=== PATIENT | male | born 1985 | race Caucasian/White ===

== ENCOUNTER 2021-03-14 16:59 | Emergency (ER) | payer OTHER, SELFPAY ==
[2021-03-14 17:04] VITALS: BP 142/00; PULSE 88; O2SAT 97
[2021-03-14 17:06] VITALS: BP 139/84; PULSE 87; RESP 18; TEMP 36.8; O2SAT 97; BMI 31.6
--- NOTE | 2021-03-14 17:14 | ED_ITS ---
HPI - General Adult General Chief complaint: Headache Stated complaint: headache Time Seen by Provider: 03/14/21 17:13 Source: patient Mode of arrival: EMS Limitations: no limitations History of Present Illness HPI narrative: 35-year-old male who presents emergency department for evaluation of headache. Patient states that around 3:00 a.m. he woke up and had a pressure-like headache to left side of his head. He states that the headache is a constant pressure/throbbing like pain which waxes and wanes in intensity. The pain is 8/10 at its worst. He states that he has a history of cluster headaches but he has not had cluster headaches and many years. He states this headache feels different than his cluster headache. He did have photophobia and nausea associated with the headache. He denied change in his vision, lightheadedness, dizziness, numbness, weakness. Patient took some Tylenol and ibuprofen with some relief his headache. Patient states that he is under stress, he states that he has a lump on his back. He saw surgeon yesterday he wants to get an ultrasound of the lump and possibly wants to remove the lump. The patient denied fever, chills, rhinorrhea, cough, chest pain or shortness of breath. Patient states that he did have a COVID-19 infection in July of 2020. States that he did receive the 2 shot Moderna COVID-19 vaccine prior to his infection. Related Data Allergies Allergy/AdvReac Type Severity Reaction Status Date / Time No Known Allergies Allergy Unverified 02/07/20 17:15 [No Known Allergies*] Review of Systems Review of Systems: Yes all other systems are reviewed and are negative [facility] Past Medical History [facility] Narrative: Past medical history: Hypoglycemia, hepatitis-C, COVID-19 infection of July of 2020. Past surgical history: Left ankle fracture requiring internal fixation. Social history: The patient smokes 5 cigarettes per day times 19 years. He states that he stop smoking 3 weeks prior. The patient does not drink alcohol. 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 He states that he uses heroin and cocaine but he has not used in 6 1/2 months. He is in a methadone program. 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 Head: Yes normal to inspection, Yes normocephalic and Yes atraumatic Ears: external ears normal General nose exam: Normal external nose present Face and sinus: Yes normal facial exam Mouth: Normal oral and palatal mucosa present Throat: Yes posterior oropharynx normal Eyes: General: appearance normal, both eyes and all related structures Pupils: Equal, round and reactive pupils present Neck: Neck: Yes normal visual inspection, Yes no lymphadenopathy, Yes trachea midline and Yes supple Chest: Chest palpation & inspection: normal inspection of the chest and normal palpation of entire chest wall Resp: Effort & Inspection: normal respiratory effort and able to speak in complete sentences Auscultation: clear to auscultation bilaterally Cardio: Rate: regular rate Rhythm: regular rhythm Heart sounds: S1 normal heart sound present, S2 normal heart sound present and no murmurs GI: Inspection: Yes normal to inspection Palpation (GI): Soft to palpation, nontender and no guarding Auscultation: normal bowel sounds : General: Yes no CVA tenderness Back/Spine/Pelvis: Back: no CVA tenderness Skin: General skin exam: no rashes or lesions noted Neuro: General: oriented to person and oriented to place Cranial nerves: Yes CN's II-XII intact bilaterally and Yes Equal, round and reactive pupils present Cognition (Neuro): normal cognition Motor exam (neuro): 5/5 motor strength present throughout Extrem: General: Yes normal to inspection Psych: Appearance: grossly normal Speech and movement: Normal speech and movement present Affect: normal affect Attitude: cooperative Thought process: Normal thought process present Thought content: Normal thought content present Course Course Course Narrative: 35-year-old male who presents emergency department for evaluation of left-sided headache which started at 3:00 a.m.. The headache a constant throbbing/pressure sensation which waxes and wanes in intensity and is 8/10 at its worst. Patient does have a history of cluster headaches with not had 1 in many years. The patient's vital signs were normal. Patient's presentation is consistent with a migraine syndrome. Patient will be treated with regular and 10 mg IV, Benadryl 50 mg IV, Toradol 30 mg IV and normal saline x1 L. 1831: The patient did feel better after the above treatment however he did developed akathisai and required Ativan 2 mg IV. The patient is feeling better and was discharged home. He is advised to take Excedrin migraine 2 tablets Benadryl 50 mg orally every 6 hours as needed for migraine headaches. He was discharged home with verbal and printed instructions. Medical Decision Making Lab Data Labs: Lab Results 03/14/21 Range/Units 18:19 POC Glucose 94 (60-115) mg/dL Discharge Plan Discharge Clinical Impression: Headache, migraine, Adverse drug reaction Patient Disposition: Home, Self-Care Instructions: Migraine Headache (ED) Additional Instructions: You had an adverse reaction to Reglan (metoclopramide) called akathisia- the feeling that you are anxious and need to run away. Do not take this medication again. For your headaches take the following medications together every 6 hours, these medications make you sleepy, do not drive or work while taking these medications: Excedrin migraine, 2 pills Benadryl 25 mg, 2 pills After you take these medications lie down in a dark quiet room and fall sleep, this should help the headache go away. Follow-up with your doctor in 2 days. Please return to the emergency department if your symptoms get worse or if you develop any symptoms that are concerning to you.
[2021-03-14] MEDS: 0.9 % Sodium Chloride 1,000 ML 999 ML IV (17:27)
[2021-03-14] MEDS: diphenhydrAMINE HCL 50 MG/ML VIAL IVPUSH (17:29)
[2021-03-14] MEDS: Ketorolac Tromethamine 15 MG/ML VIAL 30 MG IVPUSH (17:29)
--- NOTE | 2021-03-14 17:32 | PC.NURSE ---
Pt medicated for ZELAYA. Lights dimmed. Pt resting quietly at this time.
[2021-03-14] MEDS: LORazepam 2 MG/ML VIAL IVPUSH (18:15)
--- NOTE | 2021-03-14 18:20 | PC.NURSE ---
Pt feeling very anxious after Benedryl. Given 2mg of Ativan for this effect. Pt has hx of hypoglycemia and poc was assessed and reading 94.
[2021-03-14 18:21] VITALS: BP 136/89; PULSE 76; RESP 18; O2SAT 98
[2021-03-14 18:27] LABS: Glucose, Whole Blood 94 mg/dL (60-115)
== END 2021-03-14 18:46 | disposition home or self-care (01) ==
PROVIDERS: Emergency Provider Emergency Medicine Emergency Medical Services; PCP Internal Medicine
DX: G43.909 Migraine, unspecified, not intractable, without status migrainosus (principal); Z87.891 Personal history of nicotine dependence; Z79.899 Other long term (current) drug therapy
CPT/HCPCS: 82947; 96361; 96374; 96375; 99284; 99285; J1200; J1885; J2060